=== PATIENT | male | born 1990 | race Caucasian/White ===

== ENCOUNTER → 2021-03-14 10:39 | Outpatient (CLI) | payer OTHER, SELFPAY ==
[2021-03-14 11:49] LABS: COVID19 -Nasal RAPID Negative (Negative)
== END ==
PROVIDERS: Visit Provider Nurse Practitioner Family
DX: R21 Rash and other nonspecific skin eruption (principal); Z20.822 Contact with and (suspected) exposure to COVID-19
CPT/HCPCS: 87635